=== PATIENT | female | born 1975 | race Caucasian/White ===

== ENCOUNTER 2025-02-03 10:19 | Outpatient (AMB) | payer BC, SELFPAY ==
--- NOTE | 2025-02-03 10:29 | A.OFFPC_ITS ---
Vital Signs 02/03/25 10:31 Height 5 ft 3.27 in Weight 144 lb 6 oz BMI 25.4 BP 96/62 Blood Pressure Location Rt brachial Position Sitting Respiration 14 Pulse 62 Pulse Source Pulse Oximeter Temp 98.3 F Temp Source Oral Pulse Oximetry (%) 100 Oxygen Delivery Method Room Air Intake Visit Reasons: CPE Intake Note: New patient visit Platform Beater Required: No Allergies No Known Allergies Allergy (Verified 02/03/25 10:29) Medication List - Last Reconciled 02/03/25 by Dalia Jernigan PA-C venlafaxine ER 37.5 mg PO .AM Tobacco use date assessed: 02/03/25 Dental Screening Dental Screen Date: 02/03/25 Did you have a dental visit in the last 12 months?: Yes Did you have a dental problem in the last 6 months where you did not have access to dental care?: No Was dental information given to patient?: Patient has dentist HPI CPE HPI Details Patient is a 49-year-old female who presents today to [facility]. She has not had a primary in many years. She has a significant past medical history of generalized anxiety and gestational diabetes. her last labs from integrative medicine did show mild elevated LDL. CV: Denies any chest pain or shortness on breath. Endo: Last A1c was 5.5. She does have a history of gestational diabetes and states at times her blood sugar does go up fasting. She does not have a glucometer at home but plans to get 1. She states that many people in her family have type 2 diabetes. Psych: On venlafaxine 37.5 mg daily x6 years. She says that this has worked well for her anxiety. Neuro: She says for the last year she has had new onset of migraines. She has never really had headaches before and this seems to start behind the eye and ra diate to the back of her head. The headaches will last for a few days. She does have more baseline blurry vision but thinks that this could be related to age but has not seen Ophthalmology yet. She does plan to get an eye exam. Her diet has not changed. She denies any dehydration. States that she eats very well balanced. No history of anemia. Last labs from this summer showed a normal CBC. 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: Up-to-date Mammo: 2023 Colonoscopy: Due this year [facility] Medical History (Updated 02/03/25 @ 11:05 by Dalia Jernigan PA-C) Gestational diabetes Surgical History (Updated 02/03/25 @ 10:36 by Lorrie Ordonez CMA) H/O section Family History (Updated 02/03/25 @ 10:38 by Lorrie Ordonez CMA) Father Alcoholism Throat cancer Paternal Grandfather Alcoholism Throat cancer Diabetes Maternal Grandmother Diabetes Other Fernandez Syndrome Substance abuse Social History Housing: House Alcohol intake: never Patient Tobacco Use Status: Never used Tobacco e-Cigarette/Vaping Use: Never Used Second Hand Smoke Exposure: Yes service: No Current occupational status: employed 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 1. Little interest or pleasure in doing things: not at all 2. Feeling down, depressed, or hopeless: not at all 3. Trouble falling or staying asleep, or sleeping too much: not at all 4. Feeling tired or having little energy: not at all 5. Poor appetite or overeating: not at all 6. Feeling bad about yourself - or that you are a failure or have let yourself or your family down: not at all 7. Trouble concentrating on things, such as reading the newspaper or watching television: not at all 8. Moving or speaking so slowly that other people could have noticed. Or the opposite - being so fidgety or restless that you have been moving around a lot more than usual: not at all 9. Thoughts that you would be better off or of hurting yourself in some way: not at all Total score: 0 Depression Screening Interpretation: Negative Depression Screening Done: Yes 77928 - PHQ-9 Billing: Yes Source: Developed by Drs. Chalino Pelaez, Trupti Calderon, Tung Moore and colleagues, with an educational camron from [employer]. Thrive Questionnaire Date Thrive assessed: 02/03/25 I am a: Patient What is your living situation today?: I have a steady place to live Within the past 12 months, did the food you bought not last and you didn't have the money to get more?: Never true Within the past 12 months, did you worry whether your food would run out before you got money to buy more?: Never true Do you have trouble paying for medicines?: No Do you have trouble getting transportation to medical appointments?: No Do you have trouble paying your heating and electricity bill?: No Do you have trouble taking care of your child, family member or friend?: No Do you have trouble with day-to-day activities such as bathing, preparing meals, shopping, managing finances, etc.?: No Are you currently unemployed and looking for a job?: No Are you interested in more education?: I choose not to answer this question Please select the resources that you would like help with: None Currently or been in a relationship where the following occur: No concerns reported THRIVE Score: 0 AUDIT C Alcohol Use Questionnaire (AUDIT-C) 1. How often do you have a drink containing alcohol?: Never 3. How often do you have six or more drinks on one occasion?: Never Total Score: 0 BRYANT-7 AMB Questionnaire BRYANT-7 Date BRYANT - 7 assessed: 02/03/25 Feeling nervous, anxious, or on edge: 0 = Not at all Not being able to stop or control worryin = Not at all Worrying too much about different things: 0 = Not at all Trouble relaxin = Not at all Being so restless that it is hard to sit still: 0 = Not at all Becoming easily annoyed or irritable: 0 = Not at all Feeling afraid as if something awful might happen: 0 = Not at all Total BRYANT-7 score (0-4 normal; 5-9 mild; 10-14 moderate; 15-21 severe): 0 Source: Developed by Drs. Chalino Pelaez, Trupti Calderon, Tung Moore and colleagues, with an educational camron from [employer]. BRYANT-7 Assessment Billing BRYANT-7 Assessment Tool: BRYANT-7 Assessment 25746 Physical exam (Primary Care) Depression Screening Interpretation: Negative Currently or been in a relationship where the following occur: No concerns reported Const Orientation/consciousness: patient oriented x3 HENMT Ears: hearing grossly normal bilaterally and TM's normal bilaterally General nose exam: No nasal polyps present Face and sinus: Yes sinuses nontender Mouth: Normal oral and palatal mucosa present Eyes Pupils: Equal, round and reactive pupils present EOM: EOMs intact bilaterally Neck Neck: Yes full ROM and Yes no lymphadenopathy Thyroid: Thyroid normal Chest Chest palpation & inspection: normal inspection of the chest Resp Auscultation: clear to auscultation bilaterally Cardio Rate: regular rate Rhythm: regular rhythm Heart sounds: S1 normal heart sound present and S2 normal heart sound present Peripheral pulses: Peripheral pulses 2+ throughout GI Other: Soft, nontender Auscultation: normal bowel sounds Rectal Exam - Female: deferred General: Yes no CVA tenderness Back/Spine/Pelvis Other: Nontender Back: no CVA tenderness Skin General skin exam: no rashes or lesions noted Neuro General: patient oriented x3, gait normal, CN's II-XI intact bilaterally and deep tendon reflexes 2+ bilaterally Cranial nerves: Yes Equal, round and reactive pupils present Motor exam (neuro): 5/5 motor strength present throughout Sensory Exam: double simultaneous stimulation for sensation normal Coordination: kzpiay-[id number] test normal and Romberg test negative Extrem General: Yes normal to inspection and Yes full ROM Psych Affect: normal affect Attitude: cooperative Thought process: Normal thought process present Thought content: Normal thought content present Insight: Good insight present (Psych) Judgement: Good judgement present (Psych) Coding Level of Care Code Est Pt Prev Care 40-64y(09430) Diagnoses Routine general medical examination at a health care facility Z00.00 Dyslipidemia E78.5 Generalized anxiety disorder F41.1 Frequent headaches R51.9 Additional Codes PHQ-9 - 17991 - PHQ-9 Billing: Yes ([id number]) BRYANT-7 Assessment Billing - BRYANT-7 Assessment Tool: BRYANT-7 Assessment 74925 ([id number]) Assessment & Plan Assessment & Plan (1) Routine general medical examination at a health care facility: Code(s): Z00.00 - Encounter for general adult medical examination without abnormal findings Plan: Health maintenance reviewed Labs ordered Referral to GI for colonoscopy screening Referral to dermatology for skin cancer screening-family history of skin cancer 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 She will let me know if anything worsens or changes. We will do a follow up in a few months. Sooner if needed. Patient understands and agrees with the plan. Orders: Orders Complete Blood Count Auto Diff Today E78.5 - Hyperlipidemia, unspecified, F41.1 - Generalized anxiety disorder, O24.419 - Gestational diabetes mellitus in , unspecified control, R73.01 - Impaired fasting glucose, Z00.00 - Encounter for general adult medical examination without abnormal findings Comprehensive [place]. Panel Fast Today E78.5 - Hyperlipidemia, unspecified, F41.1 - Generalized anxiety disorder, O24.419 - Gestational diabetes mellitus in , unspecified control, R73.01 - Impaired fasting glucose, Z00.00 - Encounter for general adult medical examination without abnormal findings Lipid Panel Today E78.5 - Hyperlipidemia, unspecified, F41.1 - Generalized anxiety disorder, O24.419 - Gestational diabetes mellitus in , unspecified control, R73.01 - Impaired fasting glucose, Z00.00 - Encounter for general adult medical examination without abnormal findings Microalbumin, Random (w Creat) Today E78.5 - Hyperlipidemia, unspecified, F41.1 - Generalized anxiety disorder, O24.419 - Gestational diabetes mellitus in , unspecified control, R73.01 - Impaired fasting glucose, Z00.00 - Encounter for general adult medical examination without abnormal findings MM screening mammo BI Today Z12.31 - Encounter for screening mammogram for malignant neoplasm of breast TSH reflex Free T4 Today E78.5 - Hyperlipidemia, unspecified, F41.1 - Generalized anxiety disorder, O24.419 - Gestational diabetes mellitus in , unspecified control, R73.01 - Impaired fasting glucose, Z00.00 - Encounter for general adult medical examination without abnormal findings Hemoglobin A1c Today E78.5 - Hyperlipidemia, unspecified, F41.1 - Generalized anxiety disorder, O24.419 - Gestational diabetes mellitus in , unspecified control, R73.01 - Impaired fasting glucose, Z00.00 - Encounter for general adult medical examination without abnormal findings UA CC w/rflx Micro + Cult Today E78.5 - Hyperlipidemia, unspecified, F41.1 - Generalized anxiety disorder, O24.419 - Gestational diabetes mellitus in , unspecified control, R30.0 - Dysuria, R73.01 - Impaired fasting glucose, Z00.00 - Encounter for general adult medical examination without abnormal findings MR head/brain wo con Today R51.9 - Headache, unspecified Referrals TRUCK PACKER Referral Z01.419 - Encounter for gynecological examination (general) (routine) without abnormal findings Gastroenterology Referral Z12.11 - Encounter for screening for malignant neoplasm of colon Dermatology Referral Z12.83 - Encounter for screening for malignant neoplasm of skin Medications: New venlafaxine ER 37.5 mg PO .AM 90 caps 3RF
[2025-02-03 10:31] VITALS: BP 96/62; PULSE 62; RESP 14; TEMP 36.8; O2SAT 100; BMI 25.4
--- OUTSIDE RECORDS SUMMARY | 2025-02-03 12:34 | XMS_ITS | Clinical Summary ---
Author Organization [facility] Address [address] [place] [address] Care Team Providers Care Sheep Shearer Name Role Phone Peewee Ross MD Primary Care Provider Unavail able Social History Tobacco Use Types Packs/Day Years Used Date Smoking Tobacco: Never Assessed Comments Unknown Sex and Gender Information Value Date Recorded Sex Assigned at Not on file Legal Sex Female 4:38 PM EDT Gender Identity Not on file Sexual Orientation Not on file Plan of Treatment Health Maintenance Due Date Last Done Comments Hepatitis C Virus Screening 1976 HIV Screening 1989 DTaP/Tdap/Td Vaccines (1 - Tdap) 12/02/1995 Hepatitis B Vaccines (1 of 3 - 19+ 3-dose series) 12/02/1995 COVID-19 Vaccine (2023-2 5 season) 2024 Pneumococcal Vaccine: Pediat nubia (0-5 Years) and At-Risk Patients (6 to 49 Years) Aged Out No longer eligible b ased on patient's age to complete this topic Care Teams Sheep Shearer Relationship Specialty Start Date End Date Peewee Ross MD PCP - General
--- OUTSIDE RECORDS SUMMARY | 2025-02-03 12:34 | XMS_ITS | Encounter Summary ---
Author Organization [facility] Address [address] [place] [address] Care Team Providers Care Land Resource Specialist Name Role Phone Peewee Ross MD Primary Care Provider Unavail able Encounter Details Date Type Department Care Team (Late st Contact Info) Description 03/14/2023 Scanned Document [facility] Department of Internal Medicine [facility] [address] [place] [address] Peewee Ross MD Social History Tobacco Use Types Packs/Day Years Used Date Smoking Tobacco: Never Assessed Comments Unknown Sex and Gender Information Value Date Recorded Sex Assigned at Not on file Legal Sex Female 4:38 PM EDT Gender Identity Not on file Sexual Orientation Not on file documented as of this encounter Plan of Treatment Not on file documented as of this encounter Visit Diagnoses Not on filedocumented in this encounter Care Teams Land Resource Specialist Relationship Specialty Start Date End Date Peewee Ross MD PCP - General documented as of this encounter
== END 2025-02-03 11:03 | disposition home or self-care (01) ==
LOC: HO.HMCFM 10:20
PROVIDERS: PCP Physician Assistant; Visit Provider Physician Assistant
DX: Z00.00 Encounter for general adult medical examination without abnormal findings (principal); E78.5 Hyperlipidemia, unspecified; F41.1 Generalized anxiety disorder; R51.9 Headache, unspecified

== ENCOUNTER → 2025-02-03 10:19 | Outpatient (BNVA) | payer BC, SELFPAY | PROVIDERS: Visit Provider Physician Assistant | DX: Z00.00 Encounter for general adult medical examination without abnormal findings (principal); E78.5 Hyperlipidemia, unspecified; F41.1 Generalized anxiety disorder; R51.9 Headache, unspecified | CPT/HCPCS: 96127 ==

== ENCOUNTER 2025-03-14 12:35 | Outpatient (REF) | payer BC, SELFPAY ==
--- OUTSIDE RECORDS SUMMARY | 2025-03-14 15:44 | XMS_ITS | Clinical Summary ---
Author Organization [facility] Address [address] [place] [address] Care Team Providers Care Human Performance Consultant Name Role Phone Peewee Ross MD Primary [...] - 19+ 3-dose series) 12/02/1995 COVID-19 Vaccine (2024-2 6 season) 2024 Pneumococcal Vaccine: Pediat nubia (0-5 Years) and At-Risk Patients (6 to 49 Years) Aged Out No longer eligible b ased on patient's age to complete this topic Care Teams Human Performance Consultant Relationship Specialty Start Date End Date Peewee Ross MD PCP - General
--- OUTSIDE RECORDS SUMMARY | 2025-03-14 15:44 | XMS_ITS ---
Author Name [facility] Organization Unknown Care Team Organization Name Specialty Phone Email Start Date End Da [facility] ARTHUR WILEY, Primary Care
--- OUTSIDE RECORDS SUMMARY | 2025-03-14 15:44 | XMS_ITS | Encounter Summary ---
Author Organization [facility] Address [address] [place] [address] Care Team Providers Care Wooden Box Maker Name Role Phone Peewee Ross MD Primary Care Provider Unavail able Encounter Details Date Type Department Care Team (Late st Contact Info) Description 03/14/2023 Scanned Document [facility] Department of Internal Medicine [place] [address] [place] [address] Peewee Ross MD Social History Tobacco Use [...] on filedocumented in this encounter Care Teams Wooden Box Maker Relationship Specialty Start Date End Date Peewee Ross MD PCP - General documented as of this encounter
[2025-03-15 04:11] LABS: ~Hepatitis B Surface Antibody REACTIVE (Nonreactive)
[2025-03-15 11:44] LABS: Rubeola IgG (Measles) >300.00 AU/mL
== END 2025-03-14 12:36 | disposition home or self-care (01) ==
LOC: HO.WFDLDS 12:35
PROVIDERS: Visit Provider Physician Assistant
DX: Z01.84 Encounter for antibody response examination (principal)
CPT/HCPCS: 36415; 86706; 86735; 86762; 86765